=== PATIENT | female | born 1990 | race Caucasian/White ===

== ENCOUNTER 2016-08-19 12:28 | Emergency (ER) | payer BC ==
--- NOTE | 2016-08-19 13:08 | ERPHSYRPT ---
- History of Present Illness Time Seen by Provider: 08/19/16 12:59 Source: patient Patient Subjective Stated Complaint: "i fell a week ago and have had pain in my left wrist. i was dx with tenditis in that wrist on aug 02. i feel like the pain is getting worse. Since i am here for my wrist, i have been having some pain in my left collar bone as well." Triage Nursing Assessment: aox3, breathing easy unlabored, skin pink warm dry, full rom noted with pain in the left wrist, +2 raidal pulses, steady gait Physician History: The patient is a 26-year-old right-handed female with her complaining of right wrist pain. About a week and a half ago the patient was diagnosed with tendinitis to the right wrist and thumb area. A few days later she fell on concrete causing more pain to that area. She has no family doctor. She has been icing the area daily. It still hurts. Occurred: days ago (10) Method of Injury: fell Quality: constant, sharpness Severity of Pain-Max: moderate Severity of Pain-Current: moderate Extremities Pain Location: wrist: right, thumb: right Modifying Factors: Improves With: cold therapy Associated Symptoms: none Allergies/Adverse Reactions: No Known Allergies Allergy (Verified 07/24/14 19:39) azithromycin [From Zithromax Z-Artie] Adverse Reaction (Mild, Verified 11/14/13 22 :29) Vomiting Home Medications: Unobtainable [Unobtainable] 08/19/16 [History] Hx Tetanus, Diphtheria Vaccination/Date Given: No Hx Influenza Vaccination/Date Given: No Hx Pneumococcal Vaccination/Date Given: No - Review of Systems Constitutional: No Fever, No Chills Eyes: No Symptoms Ears, Nose, & Throat: No Symptoms Respiratory: No Cough, No Dyspnea Cardiac: No Chest Pain, No Edema, No Syncope Abdominal/Gastrointestinal: No Abdominal Pain, No Nausea, No Vomiting, No Diarrhea Genitourinary Symptoms: No Dysuria Musculoskeletal: Fall, Injury, Joint Pain Skin: No Rash Neurological: No Dizziness, No Focal Weakness, No Sensory Changes Psychological: No Symptoms Endocrine: No Symptoms Hematologic/Lymphatic: No Symptoms Immunological/Allergic: No Symptoms All Other Systems: Reviewed and Negative - Past Medical History Pertinent Past Medical History: No Neurological History: No Pertinent History ENT History: No Pertinent History Cardiac History: Hypertension Respiratory History: No Pertinent History Endocrine Medical History: No Pertinent History Musculoskeletal History: No Pertinent History GI Medical History: No Pertinent History History: No Pertinent History Psycho-Social History: No Pertinent History Female Reproductive Disorders: Other Other Medical History: htn, panic attacks - Past Surgical History Past Surgical History: Yes Gastrointestinal: Cholecystectomy Female Surgical History: Section - Social History Smoking Status: Never smoker Exposure to second hand smoke: No Drug Use: none Patient Lives Alone: No Significant Family History: heart disease, hypertension - Female History Hx Last Menstrual Period: 04/27/16 Hx Now: No - Nursing Vital Signs Nursing Vital Signs: Initial Vital Signs Temperature 97.9 F Temperature Source Oral Pulse Rate 88 Respiratory Rate 14 Blood Pressure 122/58 Pain Intensity 8 - Physical Exam General Appearance: alert Eyes, Ears, Nose, Throat Exam: moist mucous membranes Neck Exam: non-tender, supple Cardiovascular/Respiratory Exam: chest non-tender, normal breath sounds, regular rate/rhythm, no respiratory distress Abdominal Exam: non-tender, No guarding Back Exam: normal inspection, No vertebral tenderness Shoulder Exam: normal inspection Elbow/Forearm Exam: normal inspection Wrist Exam: limited ROM (right), pain (right), soft tissue tenderness (right) Hand Exam: limited ROM (right thumb) Neuro/Tendon Exam: normal sensation, normal motor functions Mental Status Exam: alert, oriented x 3, cooperative Skin Exam: normal color, warm, dry SpO2 Interpretation: normal SpO2: 98 Oxygen Delivery: Room Air - Radiology Exams Right Wrist X-ray Interpretation: Teleradiologist Report, Negative Ordered Tests: Active Orders 24 hr Category Date Time Status WRIST (MIN 3 VIEWS) Stat Exams 08/19/16 13:11 Completed - Progress Progress: unchanged Counseled pt/family regarding: rad results - Departure Time of Disposition: 13:44 Departure Disposition: Home Clinical Impression: Right wrist sprain Condition: Stable Critical Care Time: No Additional Instructions: Ibuprofen, tylenol, and ice as needed. Use brace as needed.
--- NOTE | 2016-08-19 13:33 | XRAY ---
Indication: Lateral pain following fall one week ago. Comparison: None 3 views of the right wrist obtained. No bony, articular, or soft tissue abnormalities.
[2016-08-19 14:04] VITALS: BP 104/61; PULSE 84; O2SAT 97
== END 2016-08-19 14:04 ==
LOC: ED 12:28
DX: S63.501D Unspecified sprain of right wrist, subsequent encounter (principal); W19.XXXD Unspecified fall, subsequent encounter; M25.519 Pain in unspecified shoulder
CPT/HCPCS: 73110; 99283; L3908

== ENCOUNTER 2017-03-22 15:53 | Emergency (ER) | payer BC ==
[2017-03-22 16:50] LABS: BASOPHIL % 0.2 % (0.0-0.4); Eosinophil % 3.5 % (0.00-5.0); Granulocytes % 65.1 % (36.0-66.0); Lymphocytes % 23.6 % (24.0-44.0); Mean Cell Volume 80.2 fl (78-100); Mean Corpuscular Hemoglobin 26.2 pg (26-32); Mean Platelet Volume 9.7 fl (6-9.5); Monocytes % 7.6 % (0.0-12.0); Platelet Count 236 K/mm3 (150-450); Red Blood Count 4.69 M/mm3 (4.1-5.4); White Blood Count 6.6 K/mm3 (4.0-10.5)
[2017-03-22 16:54] LABS: Bilirubin NEGATIVE (NEGATIVE); Blood 250 Ery/ul (0-5); COMPLETE URINE MICROSCOPIC? YES; Collection Type VOID; Glucose NEGATIVE (NEGATIVE); Leukocyte Esterase TRACE (NEGATIVE)
[2017-03-22 16:55] LABS: ADD URINE CULTURE? YES (NO); Bacteria MODERATE /HPF (NEGATIVE); Epithelial Cells MODERATE /HPF (FEW)
[2017-03-22 16:59] VITALS: BP 112/49; PULSE 90; O2SAT 97
[2017-03-22 17:07] LABS: ALKALINE PHOSPHATASE 75 U/L (46-116); ANION GAP 13.2 MEQ/L (5-15); BLOOD UREA NITROGEN 9 mg/dL (9-20); CHLORIDE 107 mEq/L (98-107); Carbon Dioxide 23.7 mEq/L (21-32); Glucose 108 MG/DL (70-110); HCG, Quantitative (Inhouse) 9 IU/L (0-6); Potassium 3.6 mEq/L (3.5-5.1); SGOT/AST 21 U/L (15-37); SGPT/ALT 21 U/L (12-78); SODIUM 140 mEq/L (136-145); Total Protein 7.6 gm/dL (6.4-8.2)
--- NOTE | 2017-03-22 17:14 | ERPHSYRPT ---
- History of Present Illness Time Seen by Provider: 03/22/17 16:12 Source: patient Patient Subjective Stated Complaint: PT STATES SHE HAS PAIN IN SCAPULA AREA. DENIES ANY INJURY. STATES SHE DOES NOT HAVE A GALLBLADDER OR HAVING CHEST PAIN. PT STATES SHE IS 4 WEEKS AND SHE IS WORRIED SHE IS HAVING A TUBAL . DENIE ANY VAGINAL BLEEDING OR CRAMPING. PT STATES SHE DOES HAVE A HX OF GASTRIC REFLUX AND WONDERS IF THAT IS WAHT IS CAUSING HER PAIN. Triage Nursing Assessment: PT PINK, WARM, DRY. PT AFEBRILE. Physician History: CC: shoulder blade pain Hx; 26 y/o patient of Dr Phillips had recent positive HCG and LMP 4 weeks ago. She had some pain in right shoulder blade. No abdominal pain, no vaginal bleeding. Normal urination. No back pain. No N/V. Allergies/Adverse Reactions: No Known Allergies Allergy (Verified 03/22/17 16:07) Home Medications: Vits W-Ca,Fe,FA(<1Mg) [] 1 each PO DAILY 03/22/17 [History] Hx Tetanus, Diphtheria Vaccination/Date Given: Yes (UNKNOWN) Hx Influenza Vaccination/Date Given: No Hx Pneumococcal Vaccination/Date Given: No - Review of Systems Constitutional: No Fever, No Chills Respiratory: No Cough, No Dyspnea Cardiac: No Chest Pain Abdominal/Gastrointestinal: No Abdominal Pain, No Nausea, No Vomiting Genitourinary Symptoms: , No Dysuria, No Flank Pain, No Vaginal Bleeding, No Vaginal Discharge Skin: No Rash Neurological: No Headache All Other Systems: Reviewed and Negative - Past Medical History Pertinent Past Medical History: Yes Neurological History: No Pertinent History ENT History: No Pertinent History Cardiac History: Hypertension Respiratory History: No Pertinent History Endocrine Medical History: No Pertinent History Musculoskeletal History: No Pertinent History GI Medical History: GERD, Gallbladder Disease History: No Pertinent History Psycho-Social History: No Pertinent History Female Reproductive Disorders: Other Other Medical History: htn, panic attacks - Past Surgical History Past Surgical History: Yes Gastrointestinal: Cholecystectomy Female Surgical History: Section - Social History Smoking Status: Never smoker Exposure to second hand smoke: Yes Drug Use: none Patient Lives Alone: No Significant Family History: heart disease, hypertension - Female History Hx Last Menstrual Period: 02/17/17 Hx Now: No Expected Date of Delivery: 11/24/17 - Nursing Vital Signs Nursing Vital Signs: Initial Vital Signs Temperature 99.6 F 03/22/17 15:59 Pulse Rate 99 H 03/22/17 15:59 Respiratory Rate 18 03/22/17 15:59 Blood Pressure 115/85 03/22/17 15:59 O2 Sat by Pulse Oximetry 98 03/22/17 15:59 Pain Scale Pain Intensity 5 - Physical Exam General Appearance: alert Eye Exam: PERRL/EOMI Ears, Nose, Throat Exam: normal ENT inspection, moist mucous membranes Neck Exam: normal inspection, non-tender, supple Respiratory Exam: normal breath sounds, lungs clear Cardiovascular Exam: regular rate/rhythm Gastrointestinal/Abdomen Exam: soft, No tenderness, No distention, No mass, No guarding Extremity Exam: normal inspection, normal range of motion Neurologic Exam: alert, oriented x 3, cooperative Skin Exam: warm, dry, No rash SpO2 Interpretation: normal SpO2: 97 Oxygen Delivery: Room Air - Course Nursing assessment & vital signs reviewed: Yes Ordered Tests: Active Orders 24 hr Category Date Time Status Clean Catch Urine Specimen STAT Care 03/22/17 16:17 Active CBC W DIFF Stat Lab 03/22/17 16:35 Completed CMP Stat Lab 03/22/17 16:35 Received CULTURE,URINE Stat Lab 03/22/17 16:35 Received HCG, Quantitative (Inhouse) Stat Lab 03/22/17 16:35 Received UA W/ MICROSCOPIC Stat Lab 03/22/17 16:35 Completed Lab/Rad Data: Laboratory Result Diagrams 03/22/17 16:35 Laboratory Results 03/22/17 03/22/17 Range/Units 16:35 16:35 WBC 6.6 (4.0-10.5) K/mm3 RBC 4.69 (4.1-5.4) M/mm3 Hgb 12.3 (12.0-16.0) gm/dl Hct 37.6 (35-47) % MCV 80.2 (78-100) fl MCH 26.2 (26-32) pg MCHC 32.7 (32-36) g/dl RDW 14.0 (11.5-14.0) % Plt Count 236 (150-450) K/mm3 MPV 9.7 H (6-9.5) fl Gran % 65.1 (36.0-66.0) % Lymphocytes % 23.6 L (24.0-44.0) % Monocytes % 7.6 (0.0-12.0) % Eosinophils % 3.5 (0.00-5.0) % Basophils % 0.2 (0.0-0.4) % Basophils # 0.01 (0-0.4) Ur Collection Type VOID Urine Color YELLOW (YELLOW) Urine Appearance HAZY (CLEAR) Urine pH 7.0 (5-6) Ur Specific [place] 1.015 (1.005-1.025) Urine Protein NEGATIVE (Negative) Urine Ketones NEGATIVE (NEGATIVE) Urine Blood 250 (0-5) Wilbert/ul Urine Nitrite NEGATIVE (NEGATIVE) Urine Bilirubin NEGATIVE (NEGATIVE) Urine Urobilinogen NORMAL (0-1) mg/dL Ur Leukocyte Esterase TRACE (NEGATIVE) Urine Microscopic RBC 0-2 (0-2) /HPF Urine Microscopic WBC 5-10 (0-5) /HPF Ur Epithelial Cells MODERATE (FEW) /HPF Urine Bacteria MODERATE (NEGATIVE) /HPF Urine Glucose NEGATIVE (NEGATIVE) mg/dL Specimen Received 03/22/17 1630 - Progress Progress Note: 03/22/17 17:13 Quant HCG 9. She has some pain in periscapular area with ROM. No point tenderness. No sign of related problem. Will refer back to Dr Phillips. Mary rapp. Counseled pt/family regarding: lab results, diagnosis, need for follow-up - Departure Time of Disposition: 17:14 Departure Disposition: Home Clinical Impression: right scapular strain, Early stage of Condition: Stable Critical Care Time: No Referrals: SEGUNDO PHILLIPS [NON-STAFF PHY W/O PRIVILEGES] - Instructions: -- Discomforts and Remedies Additional Instructions: Call DR Phillips tomorrow for follow up. Return for abdominal pain, vaginal bleeding or concerns. Prescriptions: Vitamins/Fe Sulf/FA [ Tablet] 1 tab PO DAILY #30 tablet
== END 2017-03-22 17:27 | disposition home or self-care (01) ==
LOC: ED 15:53
DX: S43.81XA Sprain of other specified parts of right shoulder girdle, initial encounter (principal); Z33.1 Pregnant state, incidental
CPT/HCPCS: 36415; 80053; 81000; 84702; 85025; 87086; 99283

== ENCOUNTER 2018-09-26 18:18 | Emergency (ER) | payer BC, MEDICAID ==
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
[2018-09-26] MEDS ORDERED: TORAdol 30 mg Injection IM ONE (20:58)
[2018-09-26] MEDS ORDERED: TORAdol 30 mg Injection ONE (21:07)
[2018-09-26] MEDS ORDERED: NORCO 5/325 MG PO ONE (22:14)
[2018-09-26] MEDS ORDERED: NORCO 5/325 MG ONE (22:24)
[2018-09-26 22:34] VITALS: BP 126/86; PULSE 88; O2SAT 98
--- NOTE | 2018-09-27 08:37 | XRAY ---
Indication: Hyperextension injury. Comparison: None 3 views of the left shoulder obtained. No bony, articular, or soft tissue abnormalities.
== END 2018-09-26 22:35 | disposition home or self-care (01) ==
LOC: ED 18:18
DX: S42.025A Nondisplaced fracture of shaft of left clavicle, initial encounter for closed fracture (principal); S46.912A Strain of unspecified muscle, fascia and tendon at shoulder and upper arm level, left arm, initial encounter; K21.9 Gastro-esophageal reflux disease without esophagitis; I10 Essential (primary) hypertension; F41.0 Panic disorder [episodic paroxysmal anxiety]; V03.00XA Pedestrian on foot injured in collision with car, pick-up truck or van in nontraffic accident, initial encounter; M25.512 Pain in left shoulder; M79.672 Pain in left foot; M25.562 Pain in left knee
CPT/HCPCS: 73030; 84703; 96372; 99284; J1885; A9270-GY

== ENCOUNTER 2019-02-18 19:11 | Emergency (ER) | payer MEDICAID, OTHER ==
[2019-02-18 19:30] VITALS: BP 148/84; PULSE 90; O2SAT 100
[2019-02-18 19:53] LABS: Appearance SLIGHTLY CLOUDY (CLEAR); Bacteria RARE /HPF (NEGATIVE); Bilirubin NEGATIVE (NEGATIVE); Blood MODERATE Ery/ul (0-5); Epithelial Cells RARE /HPF (FEW); Glucose NEGATIVE (NEGATIVE); Ketones NEGATIVE (NEGATIVE); Leukocyte Esterase NEGATIVE (NEGATIVE); Mucus SLIGHT /HPF (NEGATIVE); Nitrite NEGATIVE (NEGATIVE); Protein,Urine Dip NEGATIVE (Negative); Urobilinogen 2 mg/dL (0-1); WBC 0-2 /HPF (0-5)
--- NOTE | 2019-02-18 20:15 | ERPHSYRPT ---
- History of Present Illness Source: patient Exam Limitations: no limitations Patient Subjective Stated Complaint: Pt states she thinks she has a UTI, c/o burning urination and midline lower back pain since yesterday. denies fever. pt adds that "i took like 6 home tests on Tuesday and I've been spotting. I always spot in the beginning of my so I'm not worried about it. But , maybe while I'm here anyway I could get labs done to confirm it". Triage Nursing Assessment: [place]/warm/dry, resp easy, a&ox4, steady gait, no distress noted at this time. Physician History: Pt is a 28 y/o female that presented to the ED, thinking she had a UTI. Pt states, that she has dysuria, frequency and urgency. Pt also thinks she is . Pt had several home tests that were positive, and she wants to make sure, she is . Pt denies F/C/S. No SOB or cough. No chest pain or palpitations. Pt denies N/V/D or abdominal pain. She has b/l CVA tenderness. Timing/Duration: today Activites at Onset: none Quality: cramping Onset Location: right flank, left flank Pain Radiation: none Severity of Pain-Max: mild Severity of Pain-Current: mild Prior abdominal problems: none Modifying Factors: Improves With: nothing Associated Symptoms: dysuria, polyuria, urinary frequency Allergies/Adverse Reactions: No Known Allergies Allergy (Verified 02/18/19 19:17) Home Medications: No Reportable Medications [No Reported Medications] 02/18/19 [History] Hx Tetanus, Diphtheria Vaccination/Date Given: No Hx Influenza Vaccination/Date Given: No Hx Pneumococcal Vaccination/Date Given: No - Review of Systems Constitutional: No Fever, No Chills Eyes: No Symptoms Ears, Nose, & Throat: No Symptoms Respiratory: No Cough, No Dyspnea Cardiac: No Chest Pain, No Edema, No Syncope Abdominal/Gastrointestinal: No Abdominal Pain, No Nausea, No Vomiting, No Diarrhea Genitourinary Symptoms: Dysuria, Frequency, Flank Pain (b/l) Musculoskeletal: No Back Pain, No Neck Pain Neurological: No Dizziness, No Focal Weakness, No Sensory Changes - Past Medical History Pertinent Past Medical History: Yes Neurological History: No Pertinent History ENT History: No Pertinent History Cardiac History: Hypertension Respiratory History: No Pertinent History Endocrine Medical History: No Pertinent History Musculoskeletal History: No Pertinent History GI Medical History: GERD, Gallbladder Disease History: No Pertinent History Psycho-Social History: No Pertinent History Female Reproductive Disorders: Other Other Medical History: htn, panic attacks, preeclampsia - Past Surgical History Past Surgical History: Yes Gastrointestinal: Cholecystectomy Female Surgical History: Section Other Surgical History: 3 c section - Social History Smoking Status: Never smoker Exposure to second hand smoke: Yes Drug Use: none Patient Lives Alone: No Significant Family History: heart disease, hypertension - Female History Hx Now: Yes - Nursing Vital Signs Nursing Vital Signs: Initial Vital Signs Temperature 99.0 F 02/18/19 19:20 Pulse Rate 90 02/18/19 19:20 Respiratory Rate 14 02/18/19 19:20 Blood Pressure 148/84 02/18/19 19:20 O2 Sat by Pulse Oximetry 100 02/18/19 19:20 Pain Scale Pain Intensity 6 - Physical Exam General Appearance: no apparent distress, alert Eye Exam: PERRL/EOMI, eyes nml inspection Ears, Nose, Throat Exam: normal ENT inspection, TMs normal, pharynx normal, moist mucous membranes Neck Exam: normal inspection, non-tender, supple, full range of motion Respiratory Exam: normal breath sounds, lungs clear, No respiratory distress Cardiovascular Exam: regular rate/rhythm, normal heart sounds, normal peripheral pulses Gastrointestinal/Abdomen Exam: soft, tenderness (b/l CVAs), No mass Back Exam: normal inspection, normal range of motion, No CVA tenderness, No vertebral tenderness Extremity Exam: normal inspection, normal range of motion, pelvis stable Neurologic Exam: alert, oriented x 3, cooperative, warranty administrator II-XII nml as tested, normal mood/affect, sensation nml, No motor deficits SpO2: 100 - Course Nursing assessment & vital signs reviewed: Yes Ordered Tests: Active Orders 24 hr Category Date Time Status HCG,QUALITATIVE URINE Stat Lab 02/18/19 19:32 Completed UA W/RFX UR CULTURE Stat Lab 02/18/19 19:45 Completed Lab/Rad Data: Laboratory Results 02/18/19 02/18/19 Range/Units 19:45 19:32 Urine Color YELLOW (YELLOW) Urine Appearance SLIGHTLY CLOUDY (CLEAR) Urine pH 6.0 (5-6) Ur Specific [place] 1.020 (1.005-1.025) Urine Protein NEGATIVE (Negative) Urine Ketones NEGATIVE (NEGATIVE) Urine Blood MODERATE (0-5) Wilbert/ul Urine Nitrite NEGATIVE (NEGATIVE) Urine Bilirubin NEGATIVE (NEGATIVE) Urine Urobilinogen 2 (0-1) mg/dL Ur Leukocyte Esterase NEGATIVE (NEGATIVE) Urine WBC (Auto) 0-2 (0-5) /HPF Urine RBC (Auto) 3-5 (0-2) /HPF U Epithel Cells (Auto) RARE (FEW) /HPF Urine Bacteria (Auto) RARE (NEGATIVE) /HPF Urine Mucus (Auto) SLIGHT (NEGATIVE) /HPF Urine Culture Reflexed NO (NO) Urine Glucose NEGATIVE (NEGATIVE) mg/dL Urine HCG, Qual POSITIVE (Negative) - Progress Progress: improved Air Movement: good Progress Note: 02/18/19 20:15 Pt was seen and examined. She complains of b/l CVA tenderness. UA was negative for UTI. HCG was positive. Pt was notified about the results, and she should f/u with Ob. Blood Culture(s) Obtained: No Antibiotics given: No Discussed with Dr.: Dagmar Will see patient in: office Counseled pt/family regarding: need for follow-up - Departure Departure Disposition: Home Clinical Impression: Positive test Condition: Stable Critical Care Time: No Referrals: LEYDA ADLER MD [Primary Care Provider] - Additional Instructions: F/U with PCP and OB.
== END 2019-02-18 20:28 | disposition home or self-care (01) ==
LOC: ED 19:11
DX: Z32.01 Encounter for pregnancy test, result positive (principal)
CPT/HCPCS: 81001; 84703; 99283

== ENCOUNTER 2021-05-18 21:21 | Emergency (ER) | payer OTHER ==
--- NOTE | 2021-05-18 22:04 | ERPHSYRPT ---
- History of Present Illness Source: patient Exam Limitations: no limitations Patient Subjective Stated Complaint: I fell on my deck and my rt hand hurts so bad Triage Nursing Assessment: pt fell on her deck this evening after the rain. Pt c/o rt hand pain/wrist pain and 3 fingers (middle, ring and pinkie). Radial pulse present, no edema noted. Pt unable to bend wrist and those 3 fingers mentioned. Physician History: 30 yo wf slipped and fell on deck injuring her R wrist/hand before arrival. Pt is R handed and denies previous/other injuries. Occurred: just prior to arrival Method of Injury: fell Quality: constant Severity of Pain-Max: moderate Severity of Pain-Current: moderate Extremities Pain Location: wrist: right, hand: right Modifying Factors: Improves With: movement Associated Symptoms: none Allergies/Adverse Reactions: No Known Allergies Allergy (Verified 05/18/21 21:38) Home Medications: No Reportable Medications [No Reported Medications] 02/18/19 [History] Hx Tetanus, Diphtheria Vaccination/Date Given: Yes Hx Influenza Vaccination/Date Given: No Hx Pneumococcal Vaccination/Date Given: No Immunizations Up to Date: Yes Travel Risk - International Travel Have you traveled outside of the country in past 3 weeks: No - Coronavirus Screening Are you exhibiting any of the following symptoms?: No Close contact with a COVID-19 positive Pt in past 14-21 Days: No - Vaccine Status Have you recieved a Covid-19 vaccination: Yes Gr[employer] 1 [employer]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 - Review of Systems Constitutional: No Symptoms Eyes: No Symptoms Ears, Nose, & Throat: No Symptoms Respiratory: No Symptoms Cardiac: No Symptoms Abdominal/Gastrointestinal: No Symptoms Genitourinary Symptoms: No Symptoms Skin: No Symptoms Neurological: No Symptoms Psychological: No Symptoms Endocrine: No Symptoms Hematologic/Lymphatic: No Symptoms Immunological/Allergic: No Symptoms - Past Medical History Pertinent Past Medical History: Yes Neurological History: No Pertinent History ENT History: No Pertinent History Cardiac History: Hypertension Respiratory History: No Pertinent History Endocrine Medical History: No Pertinent History Musculoskeletal History: No Pertinent History GI Medical History: GERD, Gallbladder Disease History: No Pertinent History Psycho-Social History: No Pertinent History Female Reproductive Disorders: Other Other Medical History: htn, panic attacks, preeclampsia - Past Surgical History Past Surgical History: Yes Gastrointestinal: Cholecystectomy, Hernia Repair Female Surgical History: Section, Tubal Ligation Other Surgical History: 4 c section. part of bowel removed - Social History Smoking Status: Never smoker Exposure to second hand smoke: No Drug Use: none Patient Lives Alone: No Significant Family History: heart disease, hypertension - Female History Hx Now: No - Nursing Vital Signs Nursing Vital Signs: Initial Vital Signs Temperature 98.8 F 05/18/21 21:22 Pulse Rate 76 05/18/21 21:22 Respiratory Rate 18 05/18/21 21:22 Blood Pressure 149/100 05/18/21 21:22 O2 Sat by Pulse Oximetry 98 05/18/21 21:22 Pain Scale Pain Intensity 9 Hypertensive - Physical Exam General Appearance: no apparent distress Eyes, Ears, Nose, Throat Exam: normal ENT inspection Neck Exam: normal inspection (C-spine nttp) Cardiovascular/Respiratory Exam: normal breath sounds, regular rate/rhythm, heart sounds normal, no respiratory distress, normal peripheral pulses Abdominal Exam: non-tender Back Exam: normal inspection, normal range of motion, No CVA tenderness, No vertebral tenderness Shoulder Exam: normal inspection Elbow/Forearm Exam: normal inspection Wrist Exam: bone tenderness (TTP distal R ulna/no edema/no erythema/no ecchymotic areas/Good ulnar pulse, distal sensation, and capillary return) Hand Exam: bone tenderness (TTP R 4th/5th MCP joints/No edema, erythema, or ecchymotic areas/Good distal capillary return and sensation) Neuro/Tendon Exam: normal sensation, normal motor functions, normal tendon functions, responds to pain, no evidence tendon injury, No motor deficit, No sensory deficit Mental Status Exam: alert, oriented x 3, cooperative Skin Exam: normal color, warm, dry SpO2 Interpretation: normal SpO2: 98 O2 Delivery: Room Air - Course Nursing assessment & vital signs reviewed: Yes - Radiology Exams Hand X-ray Interpretation: Interpreted by me (R hand neg) Wrist X-ray Interpretation: Interpreted by me (R wrist neg) Ordered Tests: Active Orders 24 hr Category Date Time Status Colby Bandage Application -[facility] STAT Care 05/18/21 22:04 Completed HAND (MINIMUM 3 VIEWS) Stat Exams 05/18/21 21:47 Taken WRIST (MIN 3 VIEWS) Stat Exams 05/18/21 21:47 Taken - Progress Progress Note: 05/18/21 22:05 Pt refused pain meds Colby wrap R wrist/hand per nursing/NVI Counseled pt/family regarding: diagnosis, need for follow-up, rad results - Departure Departure Disposition: Home Clinical Impression: Right wrist sprain, Contusion of hand, right Condition: Stable Critical Care Time: No Referrals: NATALY PARSON, [facility] [Primary Care Provider] - Instructions: Wrist Sprain (DC), Contusion (DC), Common Wrist Injuries (DC), Hand Pain (DC) Additional Instructions: Ice for 12-24 hours Motrin/Tylenol for pain Colby wrap for 2-3 days Follow up with family MD for continued pain Forms: Work/School Release Form
[2021-05-18 22:14] VITALS: BP 140/110; PULSE 74
[2021-05-19 00:16] VITALS: O2SAT 98
--- NOTE | 2021-05-19 08:40 | XRAY ---
Indication: Pain following fall. Comparison: None 3 view right hand obtained. No bony, articular, or soft tissue abnormalities.
--- NOTE | 2021-05-19 08:40 | XRAY ---
Indication: Pain following fall. Comparison: August 19, 2016. 3 view right wrist obtained. Again no bony, articular, or soft tissue abnormalities.
== END 2021-05-18 22:13 | disposition home or self-care (01) ==
LOC: ED 21:21
DX: S63.501A Unspecified sprain of right wrist, initial encounter (principal); S60.221A Contusion of right hand, initial encounter; W18.39XA Other fall on same level, initial encounter
CPT/HCPCS: 73110; 73130; 99284